=== PATIENT | female | born 1940 | race Caucasian/White ===

== ENCOUNTER 2018-03-24 14:17 | Emergency (ER) | payer MEDICARE, BC ==
--- NOTE | 2018-03-24 15:47 | RAD ---
RIGHT ELBOW 4 VIEWS: Date: 03/24/18 HISTORY: Injury. Pain. COMPARISON: None. FINDINGS: There is no significant joint fluid. Joint spaces are preserved. No fracture. No cortical irregularit y or periosteal reaction. IMPRESSION: Unremarkable 4 views right elbow. POS: [facility]
== END 2018-03-24 15:43 | disposition home or self-care (01) ==
LOC: SCSER 14:17
DX: S50.11XA Contusion of right forearm, initial encounter (principal); I25.2 Old myocardial infarction; Z79.01 Long term (current) use of anticoagulants; Z79.899 Other long term (current) drug therapy; W22.8XXA Striking against or struck by other objects, initial encounter

== ENCOUNTER 2018-06-05 09:58 | Outpatient (CLI) | payer MEDICARE, BC | END 2018-06-05 09:59 | disposition home or self-care (01) | LOC: BICMAMMO 09:58 | PROVIDERS: ATTEND Internal Medicine | DX: Z12.31 Encounter for screening mammogram for malignant neoplasm of breast (principal); R92.1 Mammographic calcification found on diagnostic imaging of breast | CPT/HCPCS: 77063; 77067 ==

== ENCOUNTER 2018-08-06 13:53 | Outpatient (CLI) | payer MEDICARE, BC ==
--- NOTE | 2018-08-06 16:24 | BD ---
DEXA SCAN: 08/06/18 INDICATION: Osteoporosis screening. FINDINGS: Lumbar Spine: BMD (g/cm2) L1 0.715 T-Score: -2.5 Z-Score: -0.2 L2 0.802 T-Score: -2.1 Z-Score: 0.5 L3 0.859 T-Score: -2.0 Z-Score: 0.6 L4 0.838 T-Score: -2.0 Z-Score: 0.7 L1-L4 0.809 T-Score: -2.2 Z-Score: 0.4 Left Femoral Neck: 0.588 T-Score: -2.4 Z-Score: -0.1 Left Total Femur: 0.756 T-Score: -1.5 Z-Score: 0.4 The FRAX WHO fracture risk assessment tool estimates the ten year risk for a major osteoporotic fract ure as 15% and for hip fracture is 5.1%. Impression: Based on WHO criteria, the patient's bone mineral density is considered osteopenic. The patient is at moderate risk for fracture. POS: [facility]
== END 2018-08-06 13:54 | disposition home or self-care (01) ==
LOC: BICMAMMO 13:53
PROVIDERS: ATTEND Obstetrics & Gynecology
DX: Z13.820 Encounter for screening for osteoporosis (principal); M85.89 Other specified disorders of bone density and structure, multiple sites
CPT/HCPCS: 77080

== ENCOUNTER 2018-08-21 00:35 | Emergency (ER) | payer MEDICARE, BC ==
[2018-08-21 01:17] LABS: #Basophils 0.1 thou/uL (0.0-0.2); #Eosinphils 0.2 thou/uL (0.0-0.7); #Lymphocytes 1.7 thou/uL (1.20-3.40); #Monocytes 0.3 thou/uL (0.11-0.59); #Neutrophils 2.5 thou/uL (1.40-6.50); %Basophils 1.1 % (0.0-1.0); %Eosinophils 5.1 % (0.0-10.0); %Lymphocytes 34.8 % (21.0-51.0); Hemoglobin 13.9 g/dL (12.0-16.0); Mean Corpuscular HGB CONC 33.6 g/dL (32.0-36.0); Mean Corpuscular Hemoglobin 31.6 pg (27.0-31.0); Mean Corpuscular Volume 93.9 fL (78.0-98.0); Platelet Count 197 thou/uL (130-400); RBC Distribution Width 12.3 % (11.5-14.5); White Blood Cell (WBC) Count 4.8 thou/uL (4.8-10.8)
[2018-08-21 01:26] LABS: ALT (SGPT) 31 U/L (8-55); AST (SGOT) 43 U/L (5-34); Albumin 4.1 g/dL (3.4-4.8); Alkaline Phosphatase 45 U/L (40-150); Anion Gap 11 mmol/L (10-20); BUN (Urea Nitrogen) 19 mg/dL (9.8-20.1); Bilirubin, Total 0.3 mg/dL (0.2-1.2); Calc. Creatinine Clearance 0 mL/min (70-130); Calcium 9.8 mg/dL (7.8-10.44); Carbon Dioxide 27 mmol/L (23-31); Chloride 106 mmol/L (98-107); Estimated GFR-MDRD 71; Globulin 2.8 g/dL (2.4-3.5); Glucose 102 mg/dL (83-110); Potassium 4.4 mmol/L (3.5-5.1); Protein, Total 6.9 g/dL (6.0-8.3); Sodium 140 mmol/L (136-145)
[2018-08-21 01:30] LABS: CKMB 2.7 ng/mL (0-6.6); Troponin I Less than 0.010 ng/mL (< 0.028)
== END 2018-08-21 02:03 | disposition home or self-care (01) ==
LOC: SCSER 00:35
DX: R55 Syncope and collapse (principal); I10 Essential (primary) hypertension; I25.2 Old myocardial infarction; E78.5 Hyperlipidemia, unspecified
CPT/HCPCS: 36416; 80053; 82553; 84484; 85025; 93005

== ENCOUNTER 2018-10-02 15:33 | Outpatient (CLI) | payer MEDICARE, BC ==
--- NOTE | 2018-10-02 18:42 | MRI ---
MRI OF LUMBAR SPINE PERFORMED WITHOUT CONTRAST ENHANCEMENT: 10/02/18 HISTORY: Low back pain. The vertebral bodies are normal in height. Disc spaces appear fairly well preserved w ith generalized disc desiccation changes. There is no significant periaortic adenopathy. The visualiz ed portions of the kidneys are unremarkable. T11-12: There is what appears to be a small left inferior disc extrusion at this level minimally inde nting the thecal sac. T12-L1: No significant canal or foraminal stenosis. L1-2: Disc bulge without canal or foraminal stenosis. L2-3: Annular disc bulge. There are facet and ligamentous hypertrophic changes present without signif icant canal stenosis. There is some borderline left sided foraminal narrowing. L3-4: Degenerative facet and ligamentous hypertrophic changes present at this level with some borderl ine canal narrowing. No significant foraminal stenosis. L4-5: Degenerative facet changes are present at this level. Disc bulge is noted without significant c anal or foraminal stenosis. L5-S1: No significant canal or foraminal narrowing at this level. IMPRESSION: Areas of some borderline canal narrowing and what appears to be a small left inferior disc extrusion from the T11-12 level. No signs of any significant canal or foraminal stenosis at any of the vertebra l body levels. POS: [facility]
== END 2018-10-02 15:34 | disposition home or self-care (01) ==
LOC: MRI 15:33
PROVIDERS: ATTEND Neurological Surgery
DX: M47.816 Spondylosis without myelopathy or radiculopathy, lumbar region (principal); M48.061 Spinal stenosis, lumbar region without neurogenic claudication
CPT/HCPCS: 72148

== ENCOUNTER 2019-06-18 14:19 | Outpatient (CLI) | payer MEDICARE, BC ==
--- NOTE | 2019-06-23 06:45 | MMO ---
Bilateral MAMMO Bilat Screen [facility]. CLINICAL HISTORY: Patient is 78 years old and is seen for screening. The patient has no family history of breast cancer. The patient has no personal history of cancer. VIEWS: The views performed were: bilateral craniocaudal with tomosynthesis and bilateral mediolateral oblique with tomosynthesis. FILMS COMPARED: The present examination has been compared to prior imaging studies performed at [facility] on 03/23/2015, 04/11/2016, 05/01/2017 and 06/05/2018. MAMMOGRAM FINDINGS: There are scattered fibroglandular densities. Finding 1: There are vascular calcifications seen in both breasts. Finding 2: There is a stable loop recorder implanted in the left breast limiting image detail. There are no suspicious masses, suspicious calcifications, or new areas of architectural distortion. IMPRESSION: THERE IS NO MAMMOGRAPHIC EVIDENCE OF MALIGNANCY. A ROUTINE FOLLOW-UP MAMMOGRAM IN 1 YEAR IS RECOMMENDED. THE RESULTS OF THIS EXAM WERE SENT TO THE PATIENT. ACR BI-RADS Category 2 - Benign finding MAMMOGRAPHY NOTE: 1. A negative mammogram report should not delay a biopsy if a dominant of clinically suspicious mass is present. 2. Approximately 10% to 15% of breast cancers are not detected by mammography. 3. Adenosis and dense breasts may obscure an underlying neoplasm. Reported by: ES SENIOR MD Electonically Signed: [id number]
== END 2019-06-18 14:20 | disposition home or self-care (01) ==
LOC: BICMAMMO 14:19
PROVIDERS: ATTEND Internal Medicine
DX: Z12.31 Encounter for screening mammogram for malignant neoplasm of breast (principal)
CPT/HCPCS: 77063; 77067

== ENCOUNTER 2022-07-10 10:52 | Outpatient (CLI) | payer MEDICARE, BC | END 2022-07-10 10:53 | disposition home or self-care (01) | LOC: BICMAMMO 10:52 | PROVIDERS: ATTEND Internal Medicine | DX: Z12.31 Encounter for screening mammogram for malignant neoplasm of breast (principal) | CPT/HCPCS: 77063; 77067 ==

== ENCOUNTER 2022-08-31 08:08 | Outpatient (CLI) | payer MEDICARE, BC | END 2022-08-31 08:09 | disposition home or self-care (01) | LOC: MRI 08:08 | PROVIDERS: ATTEND Neurological Surgery | DX: M54.2 Cervicalgia (principal); M47.812 Spondylosis without myelopathy or radiculopathy, cervical region; M47.813 Spondylosis without myelopathy or radiculopathy, cervicothoracic region | CPT/HCPCS: 72141 ==

== ENCOUNTER 2023-07-09 09:54 | Outpatient (CLI) | payer MEDICARE, BC | END 2023-07-09 09:55 | disposition home or self-care (01) | LOC: SCSMRI 09:54 | PROVIDERS: ATTEND Anesthesiology Pain Medicine | DX: M43.16 Spondylolisthesis, lumbar region (principal); M41.56 Other secondary scoliosis, lumbar region; M47.816 Spondylosis without myelopathy or radiculopathy, lumbar region | CPT/HCPCS: 72100; 72148 ==

== ENCOUNTER 2023-09-17 09:56 | Day surgery (SDC) | payer MEDICARE, BC ==
[2023-09-17] MEDS ORDERED: ROMOSOZUMAB-AQQG 210 MG/2.34 ML SYR SQ SCH (10:15)
[2023-09-17 10:56] VITALS: BP 134/68; TEMP 97.9
== END 2023-09-17 11:05 | disposition home or self-care (01) ==
LOC: ONC/OP 09:56
PROVIDERS: ATTEND Internal Medicine
DX: M81.0 Age-related osteoporosis without current pathological fracture (principal)
CPT/HCPCS: 96372; J3111

== ENCOUNTER 2023-10-15 09:59 | Day surgery (SDC) | payer MEDICARE, BC ==
[~2023-10-15 09:59] MED LIST: ROMOSOZUMAB-AQQG 210 MG/2.34 ML SYR SQ SCH
[2023-10-15 10:17] VITALS: BP 136/68; TEMP 98.3
== END 2023-10-15 11:13 | disposition home or self-care (01) ==
LOC: ONC/OP 09:59
PROVIDERS: ATTEND Internal Medicine
DX: M81.0 Age-related osteoporosis without current pathological fracture (principal)
CPT/HCPCS: 96372; J3111

== ENCOUNTER 2023-12-11 10:33 | Day surgery (SDC) | payer MEDICARE ==
[2023-12-11 10:50] VITALS: BP 140/68; TEMP 97.9
[2023-12-11] MEDS: ROMOSOZUMAB-AQQG 210 MG/2.34 ML SYR SQ SCH (11:17)
== END 2023-12-11 11:54 | disposition home or self-care (01) ==
LOC: ONC/OP 10:33
PROVIDERS: ATTEND Internal Medicine
DX: M81.0 Age-related osteoporosis without current pathological fracture (principal)
CPT/HCPCS: 96372; J3111

== ENCOUNTER 2024-04-10 08:57 | Day surgery (SDC) | payer MEDICARE ==
[2024-04-10] MEDS: ROMOSOZUMAB-AQQG 210 MG/2.34 ML SYR SQ SCH (09:16)
[2024-04-10 09:25] VITALS: BP 113/56; TEMP 98.1
== END 2024-04-10 09:25 | disposition home or self-care (01) ==
LOC: ONC/OP 08:57
PROVIDERS: ATTEND Internal Medicine
DX: M81.0 Age-related osteoporosis without current pathological fracture (principal)
CPT/HCPCS: 96372; J3111

== ENCOUNTER 2024-04-17 09:40 | Outpatient (CLI) | payer MEDICARE | END 2024-04-17 09:41 | disposition home or self-care (01) | LOC: SCSMRI 09:40 | PROVIDERS: ATTEND Nurse Practitioner Family | DX: M47.24 Other spondylosis with radiculopathy, thoracic region (principal); M51.14 Intervertebral disc disorders with radiculopathy, thoracic region | CPT/HCPCS: 72146 ==

== ENCOUNTER 2024-05-08 08:59 | Day surgery (SDC) | payer MEDICARE ==
[2024-05-08] MEDS: ROMOSOZUMAB-AQQG 105 MG/1.17 ML SYR SQ SCH (09:59)
[2024-05-08 11:57] VITALS: BP 125/59; TEMP 97.9
== END 2024-05-08 11:57 | disposition home or self-care (01) ==
LOC: ONC/OP 08:59
PROVIDERS: ATTEND Internal Medicine
DX: M81.0 Age-related osteoporosis without current pathological fracture (principal)
CPT/HCPCS: 96372; J3111

== ENCOUNTER 2024-08-07 08:49 | Day surgery (SDC) | payer MEDICARE ==
[2024-08-07 09:43] VITALS: BP 135/63; TEMP 97.5
[2024-08-07] MEDS: ROMOSOZUMAB-AQQG 105 MG/1.17 ML SYR SQ SCH (09:50)
== END 2024-08-07 10:03 | disposition home or self-care (01) ==
LOC: ONC/OP 08:49
PROVIDERS: ATTEND Internal Medicine
DX: M81.0 Age-related osteoporosis without current pathological fracture (principal)
CPT/HCPCS: 96372; J3111